=== PATIENT | male | born 1975 | race Caucasian/White ===

== ENCOUNTER 2019-03-18 23:37 | Emergency (ER) | payer OTHER ==
[~2019-03-18] VITALS: Ht 180.3 cm; Wt 102.1 kg
[2019-03-18 23:45] VITALS: BP 140/102
--- NOTE | 2019-03-18 23:45 | NUR ---
PT [id number] C/C ALLERGIC REACTION AFTER REACHING INTO BUSHES, BILAT EYE SWELLING NOTED, -SOB, DIFFICULTY SWALLOWING, 50MG BENADRYL GIVEN PER EMS. PT AOX4. NAD NOTED. RESP EVEN AND UNLABORED. PT DENIES SOB. PT MENTIONED THEY HAVE NEVER HAD AN ALLERGIC REACTION. PT ON MONITOR IN BED 2. WILL CONTINUE TO MONITOR.
--- NOTE | 2019-03-18 23:54 | NUR ---
FRIEND AT BEDSIDE
[2019-03-18] MEDS ORDERED: methylPREDNISolone SOD SUCC 125 MG/2ML VIAL ONE (23:58)
[2019-03-18] MEDS ORDERED: FAMOTIDINE/PF INJ 20 MG/2 ML VIAL IV ONE (23:58)
[2019-03-19] MEDS ORDERED: IV NS 0.9% 1,000 ML BAG IV ONE
[2019-03-19] MEDS ORDERED: FAMOTIDINE/PF INJ 20 MG/2 ML VIAL IV ONE
[2019-03-19] MEDS ORDERED: methylPREDNISolone SOD SUCC 125 MG/2ML VIAL IV ONE
--- NOTE | 2019-03-19 00:57 | NUR ---
AFTER CARE INSTRUCTIONS PROVIDED VERBALLY PER MD AND NURSE. PATIENT VERBALIZED UNDERSTANDING. PRESCRIPTION GIVEN. IV removed. Catheter intact and site benign. Pressure and 4x4 applied to site. No bleeding noted.
== END 2019-03-19 01:00 | disposition home or self-care (01) ==
LOC: EDBD 23:39 → ER 23:39
DX: T78.49XA Other allergy, initial encounter (principal); X58.XXXA Exposure to other specified factors, initial encounter
CPT/HCPCS: 96374; 96375; 99283; J2930; J3490; J7030